=== PATIENT | female | born 1940 | race Caucasian/White ===

== ENCOUNTER 2018-06-25 19:03 | Emergency (ER) | payer MEDICARE, BC ==
[2018-06-25 19:12] VITALS: BP 155/71
[2018-06-25] MEDS ORDERED: Sodium Chloride 0.9% 10 ML Syringe FLUSH PRN (19:19)
[2018-06-25] MEDS ORDERED: Iopamidol 755 Mg/ML 200 ML Bottle IV ONE (19:32)
[2018-06-25] MEDS ORDERED: methylPREDNISolone Sodium Succinate 125 MG/2 ML SDV IVPUSH ONE (19:42)
[2018-06-25] MEDS ORDERED: diphenhydrAMINE 50 MG/ML SDV IVPUSH ONE (19:42)
--- NOTE | 2018-06-25 19:48 | EDM.PDOC ---
ED HPI GENERAL MEDICAL PROBLEM - General Chief Complaint: Respiratory Problem Stated Complaint: CHEST CT Time Seen by Provider: 06/25/18 19:13 Source of Information: Reports: Patient, Provider History Limitations: Reports: No Limitations - History of Present Illness INITIAL COMMENTS - FREE TEXT/NARRATIVE: The patient presents with shortness of breath and she needs a CT angiogram of her chest. She has had this shortness of breath for the past 3 months. She said nothing happened about that time such as an illness, chest pain or traveling. She says she has some tightness in her chest at times with the shortness of breath. She feels it more with exertion. She has no fever, chills , cough, abdominal pain, nausea or vomiting. She has coronary artery disease with a stent. She did not have an AR they caught it before that. She has no history of DVT or PE. She does wear compression stockings but she has been doing that for years. She has no history of asthma or COPD. She does not smoke. She does not think she is wheezing when these episodes have come on. She did see her doctor Dr Treviño and he did an EKG and labs. Her D-dimer came back elevated at 1.18 so he wanted her to come to the ER to get a CT angio of her chest. She also had an echo and stress test and all that turned out okay. Onset: Gradual Duration: Week(s): (3 months) Location: Reports: Chest Quality: Reports: Other (tightness) Severity: Mild Improves with: Reports: Immobilization Worsens with: Reports: Movement Associated Symptoms: Reports: Chest Pain, Shortness of Breath. Denies: Cough, Fever/Chills, Headaches, Nausea/Vomiting - Related Data Allergies Allergy/AdvReac Type Severity Reaction Status Date / Time Penicillins Allergy Intermediate Hives Verified 06/25/18 19:12 shellfish derived Allergy Intermediate Hives Verified 06/25/18 19:12 Sulfa (Sulfonamide Allergy Intermediate Hives Verified 06/25/18 19:12 Antibiotics) Home Meds: Home Meds Aspirin [Halfprin] 81 mg PO DAILY 11/18/13 [History] Benazepril [Lotensin] 40 mg PO DAILY 11/18/13 [History] Biotine Otc 5,000 units PO DAILY 11/18/13 [History] Furosemide 40 mg PO DAILY 11/18/13 [History] Insulin Glarg,Human.Rec.Analog [Lantus Solostar] 25 units SUBCUT DAILY 11/18/13 [History] Insulin Lispro [HumaLOG] 8 unit SQ 1100,1700 11/18/13 [History] Lutein/Minerals/Vit A,C & E [Ocuvite] 1 tab PO DAILY 11/18/13 [History] Metoprolol Succinate [Toprol XL 100mg] 100 mg PO DAILY 11/18/13 [History] Multivitamin [Multi-Vitamin Daily] 1 tab PO DAILY 11/18/13 [History] Nitroglycerin 0.4 mg SL TID PRN 11/18/13 [History] Omeprazole [Prilosec] 20 mg PO DAILY 11/18/13 [History] Potassium Chloride [Klor-Con 10] 10 meq PO DAILY 11/18/13 [History] Timolol [Betimol 0.5% Ophth Soln] 1 drop EYEBOTH 2100 11/18/13 [History] Travoprost [Travatan Z 0.004% Ophth Soln] 1 drop EYEBOTH DAILY 11/18/13 [History ] Ubidecarenone [Co Q-10] 50 mg PO DAILY 11/18/13 [History] amLODIPine Besylate [Amlodipine Besylate] 10 mg PO DAILY 11/18/13 [History] Rosuvastatin Calcium [Crestor] 40 mg PO BEDTIME 06/25/18 [History] ED ROS GENERAL - Review of Systems Review Of Systems: See Below Constitutional: Reports: No Symptoms HEENT: Reports: No Symptoms Respiratory: Reports: Shortness of Breath. Denies: Wheezing, Cough Cardiovascular: Reports: Chest Pain (Tightness), Dyspnea on Exertion Endocrine: Reports: No Symptoms GI/Abdominal: Reports: No Symptoms ED EXAM, GENERAL - Physical Exam Exam: See Below Exam Limited By: No Limitations General Appearance: Alert, No Apparent Distress Ears: Normal External Exam Nose: Normal Inspection Head: Atraumatic, Normocephalic Neck: Normal Inspection Respiratory/Chest: No Respiratory Distress, Lungs Clear, Normal Breath Sounds Cardiovascular: Regular Rate, Rhythm, No Edema, No Murmur GI/Abdominal: Soft, Non-Tender, No Organomegaly, No Mass Back Exam: Normal Inspection Course - Vital Signs Last Recorded V/S: Last Vital Signs Temp 97.1 F 06/25/18 19:09 Pulse 76 06/25/18 19:09 Resp 20 06/25/18 19:09 BP 155/71 H 06/25/18 19:09 Pulse Ox 96 06/25/18 19:09 - Orders/Labs/Meds Orders: Active Orders 24 hr Category Date Time Status Cardiac Monitoring [RC] . DIRECTED Care 06/25/18 19:19 Active Peripheral IV Care [RC] . DIRECTED Care 06/25/18 19:20 Active Sodium Chloride 0.9% [Saline Flush] Med 06/25/18 19:19 Active 10 ml FLUSH ASDIRECTED PRN Peripheral IV Insertion Adult [OM.PC] Stat Oth 06/25/18 19:19 Ordered Medication Orders Sodium Chloride (Saline Flush) 10 ml FLUSH ASDIRECTED PRN PRN Reason: Keep Vein Open Last Admin: 06/25/18 19:41 Dose: 10 ml Labs: Laboratory Tests 06/25/18 06/25/18 Range/Units 19:30 19:30 WBC 8.83 (3.98-10.04) K/mm3 RBC 4.50 (3.98-5.22) M/mm3 Hgb 13.3 (11.2-15.7) gm/L Hct 39.8 (34.1-44.9) % MCV 88.4 (79.4-94.8) fl MCH 29.6 (25.6-32.2) pg MCHC 33.4 (32.2-35.5) g/dl RDW Std Deviation 44.5 (36.4-46.3) fL Plt Count 176 L (182-369) K/mm3 MPV 11.5 (9.4-12.3) fl Neut % (Auto) 61.9 (34.0-71.1) % Lymph % (Auto) 26.3 (19.3-51.7) % [place] % (Auto) 9.7 (4.7-12.5) % Eos % (Auto) 1.8 (0.7-5.8) Baso % (Auto) 0.2 (0.1-1.2) % Neut # (Auto) 5.46 (1.56-6.13) K/mm3 Lymph # (Auto) 2.32 (1.18-3.74) K/mm3 [place] # (Auto) 0.86 H (0.24-0.36) K/mm3 Eos # (Auto) 0.16 (0.04-0.36) K/mm3 Baso # (Auto) 0.02 (0.01-0.08) K/mm3 Sodium 144 (136-145) mEq/L Potassium 3.6 (3.5-5.1) mEq/L Chloride 107 (98-107) mEq/L Carbon Dioxide 26 (21-32) mEq/L Anion Gap 14.6 (5-15) BUN 28 H (7-18) mg/dL Creatinine 1.1 H (0.55-1.02) mg/dL Est Cr Clr Drug Dosing 35.43 mL/min Estimated GFR (MDRD) 48 (>60) mL/min BUN/Creatinine Ratio 25.5 H (14-18) Glucose 99 (83-115) mg/dL Calcium 8.8 (8.5-10.1) mg/dL Total Bilirubin 0.4 (0.2-1.0) mg/dL AST 32 (15-37) U/L ALT 50 (14-59) U/L Alkaline Phosphatase 84 (46-116) U/L Troponin I < 0.017 (0.00-0.056) ng/mL Total Protein 7.0 (6.4-8.2) g/dl Albumin 4.0 (3.4-5.0) g/dl Globulin 3.0 gm/dL Albumin/Globulin Ratio 1.3 (1-2) Meds: Medications Generic Name Dose Route Start Last Admin Trade Name Freq PRN Reason Stop Dose Admin Sodium Chloride 10 ml 06/25/18 19:19 06/25/18 19:41 Saline Flush FLUSH 10 ml ASDIRECTED PRN Administration Keep Vein Open Discontinued Medications Generic Name Dose Route Start Last Admin Trade Name Freq PRN Reason Stop Dose Admin Diphenhydramine HCl 50 mg 06/25/18 19:42 06/25/18 19:47 Benadryl IVPUSH 06/25/18 19:43 50 mg ONETIME ONE Administration Iopamidol 100 ml 06/25/18 19:32 06/25/18 20:09 Isovue-370 (76%) IV 06/25/18 19:33 100 ml ONETIME ONE Administration Methylprednisolone Sodium Succinate 125 mg 06/25/18 19:42 06/25/18 19:48 Solu-Medrol IVPUSH 06/25/18 19:43 125 mg ONETIME ONE Administration - Re-Assessments/Exams Free Text/Narrative Re-Assessment/Exam: 06/25/18 20:00 I ordered an IV saline lock and labs. She is allergic to shellfish and she developed a rash before with IV contrast so I pretreated her with solu-medrol 125mg IV and benadryl 50mg IV. 06/25/18 21:01 Her CBC looks good. Her creatinine was 1.1. Her troponin was negative. Her CT shows no findings of pulmonary embolism, 7mm nodule within the right upper lung. Repeat noncontrast chest CT recommended in 6 months to evaluate for stability. Other incidental findings. Nothing acute is seen. I called Dr Treviño to up date him. He has her scheduled to see pulmonology. Departure - Departure Time of Disposition: 21:20 Disposition: Home, Self-Care 01 Condition: Good Clinical Impression: Shortness of breath, Pulmonary nodule - Discharge Information *PRESCRIPTION DRUG MONITORING PROGRAM REVIEWED*: Not Applicable *COPY OF PRESCRIPTION DRUG MONITORING REPORT IN PATIENT JENNIFER: Not Applicable Referrals: Villa Treviño MD [Primary Care Provider] - Forms: ED Department Discharge Additional Instructions: Take your medication as prescribed. Follow up with Dr Treviño. Please return if you are worse. Dr Treviño says he is getting you in to see a tricot knitter. The radiologist saw a 7mm nodule in your right lung. He recommends a repeat CT in 6 months. - My Orders Last 24 Hours: My Active Orders 06/25/18 19:19 Cardiac Monitoring [RC] . DIRECTED Sodium Chloride 0.9% [Saline Flush] 10 ml FLUSH ASDIRECTED PRN Peripheral IV Insertion Adult [OM.PC] Stat 06/25/18 19:20 Peripheral IV Care [RC] . DIRECTED - Assessment/Plan Last 24 Hours: My Active Orders 06/25/18 19:19 Cardiac Monitoring [RC] . DIRECTED Sodium Chloride 0.9% [Saline Flush] 10 ml FLUSH ASDIRECTED PRN Peripheral IV Insertion Adult [OM.PC] Stat 06/25/18 19:20 Peripheral IV Care [RC] . DIRECTED
--- NOTE | 2018-06-25 20:37 | CT ---
CT chest Technique: Multiple axial sections were obtained through the chest. Intravenous contrast was utilized. Study was performed as a pulmonary angiogram protocol. Comparison: No prior chest CT is available. Findings: Pulmonary arteries are fairly well-opacified. No filling defects are seen to indicate pulmonary embolism. Ascending aorta slightly ectatic at 3.5 cm. Mild coronary artery calcification is seen. Calcified plaque also noted within the thoracic aorta. Surgical clips are seen from prior cholecystectomy. Pulmonary nodule is seen within the right upper lung measuring 7 mm. Lungs otherwise are clear. Bone window settings were reviewed shows mild endplate spurring within the spine. Impression: 1. No findings of pulmonary embolism. 2. 7 mm nodule within the right upper lung. Repeat noncontrast chest CT recommended in 6 months to evaluate for stability. 3. Other incidental findings as noted above. Nothing acute is seen. Diagnostic code #9
== END 2018-06-25 21:24 | disposition home or self-care (01) ==
LOC: JD.ED 19:03
DX: R06.02 Shortness of breath (principal); R91.1 Solitary pulmonary nodule; Z79.82 Long term (current) use of aspirin; Z79.899 Other long term (current) drug therapy; Z88.0 Allergy status to penicillin; Z91.013 Allergy to seafood; Z88.2 Allergy status to sulfonamides
CPT/HCPCS: 36415; 71275; 80053; 84484; 85025; 96374; 96375; 99285; J1200; J2930; Q9967; 99284

== ENCOUNTER 2019-07-18 14:51 | Emergency (ER) | payer MEDICARE, BC ==
--- NOTE | 2019-07-18 15:01 | EDM.PDOC ---
ED HPI GENERAL MEDICAL PROBLEM - General Chief Complaint: Lower Extremity Injury/Pain Stated Complaint: LT KNEE INJURY Time Seen by Provider: 07/18/19 15:00 - History of Present Illness INITIAL COMMENTS - FREE TEXT/NARRATIVE: 78-year-old female presents the emergency room with a left knee injury. On Friday, now 2 days ago, the patient tripped over an uneven area on the sidewalk landing on her left kneecap. She is able to ambulate on this but she is got significant swelling and has noticed some bruising developing. Patient denies any other injury associated with this unfortunate mishap. Left Knee Pain Score (Numeric/FACES): 7 - Related Data Allergies Allergy/AdvReac Type Severity Reaction Status Date / Time Penicillins Allergy Intermediate Hives Verified 07/18/19 15:03 shellfish derived Allergy Intermediate Hives Verified 07/18/19 15:03 Sulfa (Sulfonamide Allergy Intermediate Hives Verified 07/18/19 15:03 Antibiotics) Home Meds: Home Meds Aspirin [Halfprin] 81 mg PO DAILY 11/18/13 [History] Benazepril [Lotensin] 40 mg PO DAILY 11/18/13 [History] Biotine Otc 5,000 units PO DAILY 11/18/13 [History] Furosemide 40 mg PO DAILY 11/18/13 [History] Insulin Glarg,Human.Rec.Analog [Lantus Solostar] 25 units SUBCUT DAILY 11/18/13 [History] Insulin Lispro [HumaLOG] 4 - 8 unit SQ 1100,1700 11/18/13 [History] Lutein/Minerals/Vit A,C & E [Ocuvite] 1 tab PO DAILY 11/18/13 [History] Multivitamin [Multi-Vitamin Daily] 1 tab PO DAILY 11/18/13 [History] Nitroglycerin 0.4 mg SL TID PRN 11/18/13 [History] Omeprazole [Prilosec] 20 mg PO DAILY PRN 11/18/13 [History] Potassium Chloride [Klor-Con 10] 10 meq PO DAILY 11/18/13 [History] Timolol [Betimol 0.5% Ophth Soln] 1 drop EYEBOTH 2100 11/18/13 [History] amLODIPine Besylate [Amlodipine Besylate] 10 mg PO DAILY 11/18/13 [History] Rosuvastatin Calcium [Crestor] 40 mg PO BEDTIME 06/25/18 [History] Apixaban [Eliquis] 5 mg PO BID 07/18/19 [History] Past Medical History HEENT History: Reports: Impaired Vision Cardiovascular History: Reports: High Cholesterol, Hypertension, Stents Respiratory History: Reports: Other (See Below) Other Respiratory History: PNA Gastrointestinal History: Reports: GERD [employer] History: Reports: Musculoskeletal History: Reports: Arthritis, Other (See Below) Other Musculoskeletal History: broken toes Endocrine/Metabolic History: Reports: Diabetes, Type II - Infectious Disease History Infectious Disease History: Reports: Chicken Pox, Measles - Past Surgical History HEENT Surgical History: Reports: Oral Surgery, Tonsillectomy GI Surgical History: Reports: Cholecystectomy Musculoskeletal Surgical History: Reports: Hip Replacement, Other (See Below) Other Musculoskeletal Surgeries/Procedures:: R hip and rotator cuff sx R shoulder Social & Family History - Family History Family Medical History: Noncontributory - Caffeine Use Caffeine Use: Reports: Coffee, Soda, Tea Review of Systems - Review of Systems Review Of Systems: See Below Constitutional: Reports: No Symptoms Nose: Reports: No Symptoms Mouth/Throat: Reports: No Symptoms Respiratory: Reports: No Symptoms Cardiovascular: Reports: No Symptoms GI/Abdominal: Reports: No Symptoms Musculoskeletal: Reports: Leg Pain ED EXAM, GENERAL - Physical Exam Exam: See Below Exam Limited By: No Limitations General Appearance: Alert, No Apparent Distress Respiratory/Chest: No Respiratory Distress, Lungs Clear, Normal Breath Sounds Cardiovascular: Regular Rate, Rhythm, No Edema, No Murmur Extremities: Other ([place] of her left knee shows reasonable active range of motion. She has some swelling around it and some ecchymosis mostly anterior lateral and just medial to the patella but it goes laterally to the side of the knee. LCL and MCL appear to be intact cannot really assess ACL at this point.) Course - Vital Signs Last Recorded V/S: Last Vital Signs Temp 36.6 C 07/18/19 15:00 Pulse 89 07/18/19 15:00 Resp 16 07/18/19 15:00 BP 170/73 H 07/18/19 15:00 Pulse Ox 95 07/18/19 15:00 - Orders/Labs/Meds Orders: Active Orders 24 hr Category Date Time Status Knee 3V Lt [CR] Stat Exams 07/18/19 15:11 Taken - Re-Assessments/Exams Free Text/Narrative Re-Assessment/Exam: 07/18/19 16:42 X-ray examination of her left knee shows no acute fracture dislocation she is got significant degenerative changes noted throughout the knee and the patella significant joint space narrowing in the medial compartment less so in the lateral compartment she is got some spurring happening on all articular surfaces. No acute fracture dislocation identified. The patient is ambulatory at this point I recommended she continue to stay ambulatory use Tylenol as needed for discomfort. Departure - Departure Time of Disposition: 16:43 Disposition: Home, Self-Care 01 Clinical Impression: Left knee injury - Discharge Information Referrals: Villa Treviño MD [Primary Care Provider] - Forms: ED Department Discharge Additional Instructions: Return to the emergency room with any questions problems or worsening symptoms. Continue to ice the knee for the next couple of days. Stay active but do not push it to the point of hurting worse. Use Tylenol as needed for discomfort up to 3000 mg in a 24-hour. Follow-up with Dr. Treviño in 1 week if needed. Sepsis Event Note - Focused Exam Vital Signs: Vital Signs Temp Pulse Resp BP Pulse Ox 07/18/19 15:00 36.6 C 89 16 170/73 H 95 Date Exam was Performed: 07/18/19 Time Exam was Performed: 16:42 - My Orders Last 24 Hours: My Active Orders 07/18/19 15:11 Knee 3V Lt [CR] Stat - Assessment/Plan Last 24 Hours: My Active Orders 07/18/19 15:11 Knee 3V Lt [CR] Stat
[2019-07-18 15:03] VITALS: BP 170/73; PULSE 89
--- NOTE | 2019-07-19 07:43 | CR ---
Left knee: AP and lateral views left knee were obtained. [place] patellar view was also obtained. Comparison: No previous knee exam. Moderate medial joint space narrowing is noted. Osteophytes are noted off the medial and lateral knees. 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 Mild joint space narrowing and spurring is seen within the patellofemoral joint. No joint effusion is seen. No acute abnormality is appreciated. Impression: 1. Degenerative change as noted above. 2. Nothing acute is appreciated. Diagnostic code #2 This report was dictated in MDT
== END 2019-07-18 16:50 | disposition home or self-care (01) ==
LOC: JD.ED 14:51
DX: S80.02XA Contusion of left knee, initial encounter (principal); K21.9 Gastro-esophageal reflux disease without esophagitis; E11.9 Type 2 diabetes mellitus without complications; E78.00 Pure hypercholesterolemia, unspecified; Z88.0 Allergy status to penicillin; Z91.013 Allergy to seafood; Z88.2 Allergy status to sulfonamides; Z79.82 Long term (current) use of aspirin; Z79.4 Long term (current) use of insulin; Z79.899 Other long term (current) drug therapy; W01.0XXA Fall on same level from slipping, tripping and stumbling without subsequent striking against object, initial encounter
CPT/HCPCS: 73562-26-LT; 73562-LT; 99282; 99283-25

== ENCOUNTER 2021-07-24 16:13 | Emergency (ER) | payer MEDICARE, BC ==
[2021-07-24 17:37] VITALS: BP 189/82; PULSE 83
== END 2021-07-24 20:40 | disposition home or self-care (01) ==
LOC: JD.ED 16:13
DX: S61.210A Laceration without foreign body of right index finger without damage to nail, initial encounter (principal); E78.00 Pure hypercholesterolemia, unspecified; I10 Essential (primary) hypertension; K21.9 Gastro-esophageal reflux disease without esophagitis; E11.9 Type 2 diabetes mellitus without complications; Z79.01 Long term (current) use of anticoagulants; Z79.4 Long term (current) use of insulin; Z95.0 Presence of cardiac pacemaker; Z88.0 Allergy status to penicillin; Z88.2 Allergy status to sulfonamides; Z91.013 Allergy to seafood; Z79.899 Other long term (current) drug therapy; W26.8XXA Contact with other sharp object(s), not elsewhere classified, initial encounter
CPT/HCPCS: 99282

== ENCOUNTER 2021-08-27 18:39 | Emergency (ER) | payer MEDICARE ==
[2021-08-27 19:01] VITALS: BP 186/90; PULSE 84
[2021-08-27] MEDS: Sodium Chloride 0.9% 10 ML Syringe FLUSH PRN ×2 (19:40→20:22)
[2021-08-27 19:55] LABS: ESTIMATED GFR > 60 mL/min (>60)
[2021-08-27] MEDS ORDERED: Iopamidol 612 MG/ML 50 ML SDV IVPUSH ONE (20:06)
[2021-08-27] MEDS ORDERED: Iopamidol 612 MG/ML 100 ML Bottle IVPUSH ONE (20:06)
[2021-08-27] MEDS ORDERED: Hydrocortisone Acetate 25 MG Supp RECTAL ONE (21:36)
== END 2021-08-27 21:55 | disposition home or self-care (01) ==
LOC: JD.ED 18:39
DX: K64.8 Other hemorrhoids (principal); E78.00 Pure hypercholesterolemia, unspecified; I10 Essential (primary) hypertension; E11.9 Type 2 diabetes mellitus without complications; Z88.2 Allergy status to sulfonamides; Z91.013 Allergy to seafood; Z79.899 Other long term (current) drug therapy; Z79.82 Long term (current) use of aspirin; Z79.4 Long term (current) use of insulin; Z79.01 Long term (current) use of anticoagulants; Z86.16 Personal history of COVID-19; Z90.49 Acquired absence of other specified parts of digestive tract
CPT/HCPCS: 36415; 74177; 80053; 83690; 85025; 85610; 85730; 99283; A9270; J3490; Q9967; 99284

== ENCOUNTER 2022-02-20 08:42 | Day surgery (SDC) | payer MEDICARE, BC ==
[~2022-02-20 08:42] MED LIST: Lidocaine 1%/Sod Bicarbonate in NS 8.4% 1 ML Syringe IDERM PRN
[2022-02-20] MEDS ORDERED: Sodium Chloride 0.9% 1,000 ML IV SCH (08:45)
[2022-02-20] MEDS ORDERED: Lactated Ringers 1,000 ML IV SCH (08:45)
[2022-02-20] MEDS ORDERED: Sodium Chloride 0.9% 10 ML Syringe FLUSH SCH (09:00)
[2022-02-20] MEDS ORDERED: Bupivacaine 0.5% 30 ML SDV ONE (09:33)
[2022-02-20] MEDS ORDERED: Lidocaine 1% 2 ML ONE (09:57)
[2022-02-20] MEDS ORDERED: fentaNYL 100 MCG/2 ML SDV ONE (09:57)
[2022-02-20] MEDS ORDERED: Propofol 200 MG/20 ML SDV ONE ×2 (09:57→10:56)
[2022-02-20] MEDS ORDERED: Sodium Chloride 0.9% 1,000 ML ONE (11:15)
[2022-02-20 11:59] VITALS: BP 144/60; PULSE 66
== END 2022-02-20 12:11 | disposition home or self-care (01) ==
LOC: JD.SDS 08:42
PROVIDERS: ATTEND Surgery
DX: D12.7 Benign neoplasm of rectosigmoid junction (principal); D12.2 Benign neoplasm of ascending colon; D12.0 Benign neoplasm of cecum; D12.4 Benign neoplasm of descending colon; D12.3 Benign neoplasm of transverse colon; D12.5 Benign neoplasm of sigmoid colon; K21.00 Gastro-esophageal reflux disease with esophagitis, without bleeding; K29.70 Gastritis, unspecified, without bleeding; K29.80 Duodenitis without bleeding; K64.4 Residual hemorrhoidal skin tags; K64.8 Other hemorrhoids; K57.30 Diverticulosis of large intestine without perforation or abscess without bleeding; I10 Essential (primary) hypertension; E11.42 Type 2 diabetes mellitus with diabetic polyneuropathy; E78.00 Pure hypercholesterolemia, unspecified; I48.0 Paroxysmal atrial fibrillation; Z88.0 Allergy status to penicillin; Z88.2 Allergy status to sulfonamides; Z91.041 Radiographic dye allergy status; Z88.8 Allergy status to other drugs, medicaments and biological substances; Z91.013 Allergy to seafood; Z98.890 Other specified postprocedural states; Z90.710 Acquired absence of both cervix and uterus; Z79.899 Other long term (current) drug therapy; Z79.84 Long term (current) use of oral hypoglycemic drugs; Z87.891 Personal history of nicotine dependence; Z86.16 Personal history of COVID-19; Z90.49 Acquired absence of other specified parts of digestive tract; Z79.82 Long term (current) use of aspirin
CPT/HCPCS: 43239; 45380; J2704; J3010; J3490; J7030